=== PATIENT | female | born 1985 | race Caucasian/White ===

== ENCOUNTER 2021-12-03 09:05 | Day surgery (SDC) | payer BC, OTHER ==
[~2021-12-03] VITALS: Ht 157.5 cm; Wt 54.0 kg
--- NOTE | ~2021-12-03 | HP ---
[facility] [address], [place] [address] Draft ADMISSION DATE: 12/03/2021 CHIEF COMPLAINT: Severe abdominal pain. HISTORY OF PRESENT ILLNESS: Ms. Dos Santos is a very pleasant 36-year-old G3, P2 female, who presented to the emergency department complaining of severe pain since 5:00 p.m. yesterday. The patient is status post total laparoscopic hysterectomy and bilateral salpingectomy in 2019. The patient reports on and off pain in the abdomen/pelvis starting last weekend that resolved and then came on suddenly at 5:00 p.m. yesterday. Pain is constant, 10/10. Reportedly the worst pain of her life. Causes her to scream, almost pass out, and nausea and vomiting. Previous to this episode, she has had occasional pain with intercourse and cyclic pain monthly for the past year or so. The patient denies fever, chills, vaginal discharge, or other symptoms. A CT was performed demonstrating a 5.2 cm right adnexal mass with surrounding soft tissue concerning for ovarian torsion. PAST MEDICAL HISTORY: None. PAST SURGICAL HISTORY: 1. Total laparoscopic hysterectomy. 2. Vaginal cuff repair following hysterectomy. 3. Abdominoplasty. ALLERGIES: None. MEDICATIONS: None. SOCIAL HISTORY: The patient does not smoke cigarettes and occasional social alcohol. She does use edible marijuana. FAMILY HISTORY: Not pertinent. REVIEW OF SYSTEMS: A complete review of systems was performed and negative except per HPI. PATIENT NAME: ROMELIA DOS SANTOS HISTORY AND PHYSICAL DATE OF : 87 REPORT #: [id number] PHYSICIAN: MISHA JALLOH DO PCP: HILDA CHRISTOPHER REPORT IS CONFIDENTIAL AND NOT TO BE RELEASED WITHOUT AUTHORIZATION [facility] [address], [place] [address] Draft PHYSICAL EXAMINATION: VITAL SIGNS: Temperature 97.6, pulse 81, respiratory rate 16, blood pressure 116/64, pulse ox 100. GENERAL: The patient is sitting up in bed, comfortable with at bedside. HEENT: Normocephalic, atraumatic. LUNGS: Clear to auscultation bilaterally. HEART: Regular rate and rhythm. ABDOMEN: Tense, nondistended, with involuntary guarding and rebound. There is fullness over the right lower quadrant consistent with CT findings. EXTREMITIES: Normal. PELVIC: Deferred. Surgical scars consistent with surgical history. LABORATORY DATA: WBCs 9.9, hemoglobin 12.8, platelets 230. Sodium 136, potassium 3.8, chloride 102, carbon dioxide 25, BUN 16, creatinine 0.75, glucose 97, AST 13, ALT 19. Urine normal. COVID swab pending at this time, the patient declines symptoms. CT 5.2 cm right adnexal cyst with surrounding soft tissue mass/edema. Status post total laparoscopic hysterectomy. ASSESSMENT: Right adnexal mass, likely right ovarian torsion. PLAN: Reviewed ovarian torsion and adnexal mass in detail with the patient. Discussed surgical intervention with diagnostic laparoscopy with likely right ovarian cystectomy versus oophorectomy. She is status post TLH and would prefer ovary removed if deemed necessary. Reviewed differential causes of right adnexal mass and will evaluate pelvis for endometriosis or other causes. Ancef 2 g and heparin 5000 units preoperatively. The patient agrees to blood transfusion if necessary. Risks, benefits, and alternatives were discussed in detail with the patient. Risks include but are not limited to infection, bleeding, or injury to surrounding GI, structures. Misha Jalloh DO JDW/MODL /[id number] PATIENT NAME: ROMELIA DOS SANTOS HISTORY AND PHYSICAL DATE OF : [birth year] REPORT #: [id number] PHYSICIAN: MISHA JALLOH DO PCP: HILDA CHRISTOPHER REPORT IS CONFIDENTIAL AND NOT TO BE RELEASED WITHOUT AUTHORIZATION [facility] [address] [facility] [place] [address] Draft Copies: ~ PATIENT NAME: ROMELIA DOS SANTOS HISTORY AND PHYSICAL DATE OF : [birth year] REPORT #: [id number] PHYSICIAN: MISHA JALLOH DO PCP: HILDA CHRISTOPHER REPORT IS CONFIDENTIAL AND NOT TO BE RELEASED WITHOUT AUTHORIZATION
[~2021-12-03 09:05] MED LIST: FERROUS SULFAT325 MG PO; IBUPROFEN800 MG PO; MOTRIN IB200 M1 PO; NORCO 5-325 TA1 EACH PO; XANAX0.25 MG PO
--- NOTE | 2021-12-03 14:06 | NUR ---
12/03/21 1406 Gina Swanson 1402 PATIENT ARRIVES TO PACU UNRESPONSIVE TO PAIN. ORAL AIRWAY IN PLACE. RESP EVEN AND UNLABORED, MASK AT 6 LITERS.
--- NOTE | 2021-12-03 15:30 | NUR ---
PATIENT HERE FROM PACU. REPORT RECIEVED FROM TATIANA RAMOS. PATIENT IS ALERT AND ORIENTED X4. BREATHING EQUAL AND UNLABORED. OXYGEN SATURATIONS AND RR WNL ON ROOM AIR. PATIENT COMPLAINS OF 5/10 PAIN AN ACHE. 4 LAP SITES COVERED WITH BANDAIDS. SMALL MODERATE DRAINAGE BLOOD TINGED. PATIENT IS SIPPING ON WATER AND EATING CRACKERS. CALL LIGHT WITHIN REACH NO FUTHER NEEDS. BOYFRIEND PRESENT IN ROOM NO QUESTIONS.
--- NOTE | 2021-12-03 16:00 | NUR ---
PATIENT COMPLAINS OF 8/10 PAIN WHEN STANDING AT EDGE OF BED. PERCOCET PO GIVEN TO PATIENT AFTER EATING CRACKERS AND DRINKING WATER. CALL LIGHT WITHIN REACH NO FUTHER NEEDS.
--- NOTE | 2021-12-03 16:35 | NUR ---
PATIENT ASSESSMENT COMPLETE. PATIENT IS ALERT AND ORIENTED X4. BREATHING IS EQUAL AND UNLABORED. OXYGEN SATURATIONS AND RR WNL ON ROOM AIR. PATIENT COMPLAINS OF 7/10 PAIN FROM ABDOMEN. 4 LAP SITES HAVE BANDAIDS OVER THEM. SMALL AMOUNT OF BLOOD TINGED DRAINAGE. PATIENT CATH WAS D/C'D WNL. PATIENT EATING AND DRINKING. CALL LIGHT WITHIN REACH NO FUTHER NEEDS. NO QUESTIONS AT THIS TIME.
--- NOTE | 2021-12-03 17:56 | NUR ---
PATIENT ASSESSMENT COMPLETE. PATIENT WAS GIVEN 0.5 MG DILAUDID IV FOR PAIN CONTROL. VERBAL ORDER FROM DR. LUNA. PATIENT PAIN WAS A 7/10 AND IS A 4/10 AT THIS TIME ACHE AT SURGICAL SITE. PATIENT HAS 4 LAP SITES WITH BANDAIDS COVERING. SMALL AMOUNT OF MODERATE DRAINAGE BLOOD TINGED. PATIENT IS UNABLE TO VOID. DRESSMAKING TEACHER NOTIFIED. DR. LUNA ADMITTING PATIENT TO THE MEDICAL SURGICAL FLOOR FOR THE NIGHT. WAITING A BED. CALL LIGHT WITHIN REACH NO FUTHER NEEDS.
--- NOTE | 2021-12-03 18:13 | NUR ---
REPORT RECIEVED FROM SUSAN, DAY SURGERY.
--- NOTE | 2021-12-03 18:28 | NUR ---
PATIENT ARRIVED TO MED SURG, ABLE TO MOVE SELF OVER TO BED, MAINTAINS ABD PAIN AT 4/10. VITALS ARE STABLE, 100% ON ROOM AIR. X4 ABD INCISIONS ARE COVERED WITH BANDAIDS, SHAWDOW DRAINAGE NOTICED. PATIENT DID VOID 400ML BEFORE COMING TO MED SURG.
--- NOTE | 2021-12-03 18:30 | NUR ---
PATIENT TRANSFERED TO MED/SURG FLOOR. REPORT GIVEN TO MED/SURG NURSE. PATIENT TOLERATED TRANSFER WELL. PATIENTS PAIN IS STILL A 4/10. BED RAILS UP. MED/SURG NURSE IN ROOM.
--- NOTE | 2021-12-03 19:05 | NUR ---
RECEIVED REPORT FROM DAY SHIFT RN. PATIENT IS RESTING IN BED. PATIENT RATES PAIN AT A 4/10. PATIENT REQUESTING PRN PAIN MEDICATION.
--- NOTE | 2021-12-03 19:15 | NUR ---
AT [facility]. PATIENT TO RECIEVED NERVE BLOCK. MD REQUESTED A HOLD ON THE PAIN MEDICATION AT THIS TIME. PATIENTS IS NOW AT [facility] WITH FOOD FOR PATIENT. MD GAVE VERBAL ORDER TO SL PATIENT. NO FURTHER NEEDS.
--- NOTE | 2021-12-03 19:49 | NUR ---
HOBBING MACHINE OPERATOR AT THE BEDSIDE TO COMPLETE NERVE BLOCK. NO NEEDS NOTED. CALL LIGHT IN REACH.
--- NOTE | 2021-12-03 20:29 | NUR ---
PATIENT ASSESMENT COMPLETED. PATIENT RATES PAIN AT A 2/10, AND DENIES THE NEED FOR PAIN MEDICATION AT THIS TIME. PATIENTS SCHEDULED MEDICATIONS GIVEN PER ORDER. PATIENT IS SL AND IV FLUSHES WELL. PLANING MACHINE OPERATOR IN ROOM TO CHECK ON PATIENT. VITALS TAKEN AND RECORDED. INTAKE AND OUTPUT RECORDED. PATIENT DENIES ANY FURTHER NEEDS. CALL LIGHT IN REACH. AT THE BEDSIDE.
--- NOTE | 2021-12-03 20:32 | NUR ---
CALL RECEIVED FROM ER REGISTRATION, ASKING IF PT 2 BOYS CAN VISIT. CONTACTED PULPIT OPERATOR, BECAUSE PT IS COVID POSITIVE, PT HAS BEEN PRESENT THIS DAY. TO FRONT TO VISIT WITH SONS. PT REQUESTED A CHIKA TO BE BROUGHT BACK.
--- NOTE | 2021-12-03 22:21 | NUR ---
PATIENT REPORTS 5/10 PAIN IN HER LOWER ABD. PATIENT GIVEN PRN PAIN MEDICATION PER ORDER. PATIENT PROVIDED WITH FRESH ICE WATER. NO FURTHER NEEDS NOTED. CALL LIGHT IN REACH.
--- NOTE | 2021-12-03 23:43 | NUR ---
PATIENT IS RESTING IN BED WITH EYES CLSOED, RR 17. CALL LIGHT IN REACH. HAS LEFT FOR THE EVENING.
--- NOTE | 2021-12-04 01:57 | NUR ---
PATIENT REPORTS 6/10 PAIN, PRN PAIN MEDICATION GIVEN PER ORDER. FRESH ICE PACKS PROVIDED TO PATIENT FOR HER ABD. BANDAIDS ON ABD ARE C/D/I, NO NEW DRAINAGE NOTED. PATIENTS ABD IS SOFT AND TENDER. PATIENTS VITALS TAKEN AND RECORDED. PATIENT DENIES ANY FURTHER NEEDS. CALL LIGHT IN REACH.
--- NOTE | 2021-12-04 03:26 | NUR ---
PATIENT IS RESTING IN BED WITH EYES CLSOED, RR 16. CALL LIGHT IN REACH.
--- NOTE | 2021-12-04 05:59 | NUR ---
MORNING VITALS TAKEN AND RECORDED. INTAKE AND OUTPUT RECORDED. FRESH ICE PACKS PROVIDED TO PATIENT FOR LOW ABD. PATIENT RATED PAIN AT 6/10 IN HER LOW ABD. PATIENT GIVEN PRN PAIN MEDICATION PER ORDER. PATIENT DENIES ANY FURTHER NEEDS. CALL LIGHT IN REACH.
--- NOTE | 2021-12-04 06:57 | NUR ---
PATIENT IS RESTING IN BED WITH EYES CLSOED, RR 16. CALL LIGHT IN REACH.
--- NOTE | 2021-12-04 09:47 | NUR ---
PT ON PHONE, REQUESTED I RETURN LATER. WILL FOLLOW
--- NOTE | 2021-12-05 14:08 | PATH ---
[facility] [address], [place] [address] Signed SPECIMEN(S): A RIGHT OVARY AND CYST SPECIMEN SOURCE: A. RIGHT OVARY AND CYST CLINICAL HISTORY: Adnexal mass. FINAL PATHOLOGIC DIAGNOSIS: Ovary and cyst, right, oophorectomy: - Fragments of ovary with cystic follicles and stromal hemorrhage. - Fragments of hemorrhagic corpus luteum cyst. NAL:cml:[id number] MICROSCOPIC EXAMINATION: Histologic sections of all submitted blocks are examined by light microscopy. These findings, together with the gross examination, support the pathologic diagnosis. GROSS DESCRIPTION: The specimen, labeled "DQ," and designated on the requisition "hemorrhagic right ovary and cyst," is received in formalin and consists of multiple fragments of pink-florentino to hemorrhagic soft tissue and ovary (5.4 x 3.5 x 2.3 cm in aggregate). The tissue is serially sectioned reveal florentino to hemorrhagic cut surfaces with multiple hemorrhagic and serous fluid filled cysts that range in size from 0.2-2.3 cm in greatest dimension). No papillary excrescences are grossly identified. Splicer Helper sections are submitted in cassette A1 and A2. AC (under the direct supervision of a pathologist) The Gross Description was prepared using a voice recognition system. The report was reviewed for accuracy; however, sound-alike word errors, addition and/or deletions may occur. If there is any question about this report, please contact Client Services. PERFORMING LABORATORY: The technical component was performed by [facility], [address] [place] [id number] (Custom Ski Maker: Selam Da Silva MD; CLIA# [id number]). [facility], [address] [address] (CLIA# [id number]). PATIENT NAME: ROMELIA DOS SANTOS PATHOLOGY DATE OF : [birth year] REPORT #: [id number] PHYSICIAN: [facility] PCP: HILDA CHRISTOPHER REPORT IS CONFIDENTIAL AND NOT TO BE RELEASED WITHOUT AUTHORIZATION [address] [place] [address] Signed Diagnostician: Vijaya Chilel MD Pathologist Electronically Signed 12/05/2021 Copies: ~ PATIENT NAME: ROMELIA DOS SANTOS PATHOLOGY DATE OF : [birth year] REPORT #: [id number] PHYSICIAN: [facility] PCP: HILDA CHRISTOPHER REPORT IS CONFIDENTIAL AND NOT TO BE RELEASED WITHOUT AUTHORIZATION
== END 2021-12-04 10:15 | disposition home or self-care (01) ==
LOC: ED 09:05 → DS 11:40 → MS 11:40 → DS 12-04 10:15
PROVIDERS: ATTEND Obstetrics & Gynecology
PROC: 0UT04ZZ Resection of Right Ovary, Percutaneous Endoscopic Approach (ICD-10-PCS; principal; 2021-12-03 11:20)
PROC: 0W9G4ZZ Drainage of Peritoneal Cavity, Percutaneous Endoscopic Approach (ICD-10-PCS; 2021-12-03 11:20)
DX: N83.11 Corpus luteum cyst of right ovary (principal); K66.1 Hemoperitoneum; K66.0 Peritoneal adhesions (postprocedural) (postinfection); U07.1 COVID-19
CPT/HCPCS: 00840; 36415; 74177; 80053; 81001; 85025; 86850; 86900; 86901; A9270; C9803; J0131; J0690; J1100; J1170; J1644; J1885; J2001; J2250; J2300; J2370; J2405; J2704; J2795; J3010; J7030; J7121; Q9967; U0003